=== PATIENT | male | born 1965 | race Caucasian/White ===

== ENCOUNTER 2020-08-18 08:14 | Emergency (ER) | payer OTHER, SELFPAY ==
[~2020-08-18] VITALS: Ht 185.4 cm; Wt 86.2 kg
[2020-08-18 08:26] VITALS: BP 146/84
[2020-08-18] MEDS ORDERED: LORazepam 2 MG/ML VIAL IVP ONE ×3 (08:30→15:30)
[2020-08-18 09:03] LABS: BASOPHILS % (AUTO) 0.3 % (0.0-2.0); EOSINOPHILS # (AUTO) 0.1 K/uL (0-0.4); EOSINOPHILS % (AUTO) 1.2 % (0.0-4.0); HEMATOCRIT 42.1 % (36-52); HEMOGLOBIN 14.1 g/dL (12.0-18.0); LYMPHOCYTES # (AUTO) 1.2 K/uL (2.0-11.5); MEAN CORPUSCULAR HEMOGLOBIN 30 pg (27-31); MEAN CORPUSCULAR HGB CONC 34 g/dL (33-37); MEAN CORPUSCULAR VOLUME 89.3 fL (80-94); MONOCYTES # (AUTO) 0.6 K/uL (0.8-1.0); MONOCYTES % (AUTO) 6.6 % (1.7-9.3); NEUTROPHILS # (AUTO) 7.7 K/uL (1.8-7.7); NEUTROPHILS % (AUTO) 79.9 % (42.2-75.2); PLATELET COUNT (AUTO) 196 K/uL (140-450); RED BLOOD CELL COUNT(AUTO) 4.71 MIL/uL (4.20-6.10); RED CELL DISTRIBUTION WIDTH 13.2 % (11.6-13.7); WHITE BLOOD COUNT (AUTO) 9.7 K/uL (4.8-10.8)
--- NOTE | 2020-08-18 09:12 | NUR ---
PATIENT TAKEN TO BED 4 BY [facility] AT THIS TIME.
[2020-08-18 09:42] LABS: ALBUMIN 4.1 g/dL (3.4-5.0); ANION GAP 13.9 (8-16); ASPARTATE AMINOTRANSFERASE 18 U/L (15-37); CARBON DIOXIDE 28.3 mmol/L (21-32); CHLORIDE 104 mmol/L (98-107); CREATININE 0.9 mg/dL (0.6-1.3); GFR ARICAN-AMERICAN 113 mL/min (>90); GLUCOSE 160 mg/dL (74-106); POTASSIUM 3.2 mmol/L (3.5-5.1); SALICYLATE 2.8 mg/dL (2.8-20.0); SODIUM SERUM 143 mmol/L (136-145); TOTAL BILIRUBIN 0.4 mg/dL (0.0-1.0); UREA NITROGEN, BLOOD 14 mg/dL (7-18)
[2020-08-18 09:46] LABS: ACETAMINOPHEN < 0.5 ug/ml (10-30)
--- NOTE | 2020-08-18 13:17 | NUR ---
Stable but not follow commands yet Lying in bed with blankets over head Sleeping but easily aroused
[2020-08-18] MEDS ORDERED: NACL 0.9% 1,000 ML IV ONE ×2 (13:55→20:55)
--- NOTE | 2020-08-18 14:12 | NUR ---
PT'S SPEAKING WITH DR. BRADEN.
[2020-08-18] MEDS ORDERED: HALOPERIDOL IM 5 MG/ML VIAL IM ONE (14:55)
[2020-08-18] MEDS ORDERED: LORazepam 2 MG/ML VIAL ONE (15:32)
[2020-08-18] MEDS ORDERED: diphenhydrAMINE 50 MG/ML VIAL IVP ONE (16:10)
[2020-08-18 17:01] LABS: BARBITURATE, URINE NEGATIVE ng/ml (NEG <=200); BENZODIAZEPINE, URINE POSITIVE ng/mL (NEG <=200); CANNABINOID, URINE NEGATIVE ng/mL (NEG <=50); COCAINE, URINE NEGATIVE ng/mL (NEG <=300); OPIATE, URINE NEGATIVE ng/mL (NEG <=2000); PHENCYCLIDINE SCREEN,URINE NEGATIVE ng/mL (NEG <=25)
--- NOTE | 2020-08-18 20:00 | NUR ---
RESTING IN BED WITH EYES CLOSED, RESPIRATIONS REGULAR AND UNLABORED
[2020-08-18] MEDS ORDERED: ONDANSETRON 4 MG/2 ML VIAL IM/IVP PRN (20:35)
[2020-08-18] MEDS ORDERED: DEXT 5% /NACL 0.9% 1,000 ML IV SCH (20:35)
[2020-08-18] MEDS ORDERED: POTASSIUM CHLORIDE 10 MEQ TABER PO PRN (20:35)
[2020-08-18] MEDS ORDERED: ZOLPIDEM 5 MG TAB PO PRN (20:35)
[2020-08-18] MEDS ORDERED: HYDROcodone/APAP 7.5/325 MG 1 TAB PO PRN (20:35)
[2020-08-18] MEDS ORDERED: DOCUSATE SODIUM 100 MG GELCAP PO PRN (20:35)
[2020-08-18] MEDS ORDERED: ACETAMINOPHEN 325 MG TAB PO PRN (20:35)
[2020-08-18] MEDS ORDERED: guaiFENesin DM 200/20 MG-10 ML 10 ML UDC PO PRN (20:35)
[2020-08-18] MEDS ORDERED: DEXTROSE 5% 1,000 ML IV ONE (20:55)
[2020-08-18 21:51] LABS: CHOL/HDL RATIO 2.9 (1-4.5); FREE T4 (FREE THYROXINE) 1.24 ng/dL (0.76-1.46); MAGNESIUM 1.8 mg/dL (1.8-2.4); PHOSPHORUS 3.5 mg/dL (2.5-4.9)
[2020-08-18 21:56] LABS: PROTHROMBIN TIME 9.9 secs (10.8-13.4)
[2020-08-18 22:18] LABS: THYROID STIMULATING HORMONE 0.84 uIU/mL (0.34-3.74)
--- NOTE | 2020-08-18 22:55 | NUR ---
RAJNI SWAB OBTAINED
--- NOTE | 2020-08-19 02:00 | NUR ---
HAS BEEN RESTING QUIETLY WITH EYES CLOSED.
--- NOTE | 2020-08-19 07:20 | NUR ---
REPORT RECEIVED FROM DANIELLE POWERS, TRANSFER OF CARE AT THIS TIME
[2020-08-19 08:00] LABS: BASOPHILS % (AUTO) 0.4 % (0.0-2.0); EOSINOPHILS # (AUTO) 0.1 K/uL (0-0.4); EOSINOPHILS % (AUTO) 2.1 % (0.0-4.0); HEMATOCRIT 40.6 % (36-52); HEMOGLOBIN 13.6 g/dL (12.0-18.0); LYMPHOCYTES # (AUTO) 1.5 K/uL (2.0-11.5); MEAN CORPUSCULAR HEMOGLOBIN 30 pg (27-31); MEAN CORPUSCULAR HGB CONC 33 g/dL (33-37); MEAN CORPUSCULAR VOLUME 88.6 fL (80-94); MONOCYTES # (AUTO) 0.6 K/uL (0.8-1.0); MONOCYTES % (AUTO) 9.1 % (1.7-9.3); NEUTROPHILS # (AUTO) 4.1 K/uL (1.8-7.7); NEUTROPHILS % (AUTO) 64.4 % (42.2-75.2); PLATELET COUNT (AUTO) 179 K/uL (140-450); RED BLOOD CELL COUNT(AUTO) 4.58 MIL/uL (4.20-6.10); RED CELL DISTRIBUTION WIDTH 13.1 % (11.6-13.7); WHITE BLOOD COUNT (AUTO) 6.4 K/uL (4.8-10.8)
--- NOTE | 2020-08-19 08:09 | NUR ---
PT STATES THAT HE IS TIRED OF BEING HERE AND WANTS TO LEAVE AMA, DR ROCHA MADE AWARE.
--- NOTE | 2020-08-19 08:25 | NUR ---
PT TO BE PICKED UP BY SON/.
[2020-08-19 08:30] VITALS: BP 132/63
--- NOTE | 2020-08-19 08:30 | NUR ---
PT SIGNED AMA AND LEFT FACILITY AT THIS TIME
[2020-08-19] MEDS ORDERED: PANTOPRAZOLE 40 MG TABEC PO SCH (09:00)
[2020-08-19 09:04] LABS: ANION GAP 13.7 (8-16); CARBON DIOXIDE 25.9 mmol/L (21-32); CREATININE 0.7 mg/dL (0.6-1.3); POTASSIUM 3.6 mmol/L (3.5-5.1)
[2020-08-20 07:12] LABS: T4 (THYROXINE) 9.2 ug/dL (4.5-12.0)
--- NOTE | 2020-08-21 14:21 | NUR ---
LATE ENTRY -- DEXTROSE INFUSIONS ENDED AT 0800 08/19/20
--- NOTE | 2020-08-22 10:18 | NUR ---
LATE ENTRY -- NS INFUSION COMPLETED AT 0800 08/19
== END 2020-08-19 08:30 | disposition left against medical advice (07) ==
LOC: MED 08:14 → UNDOADMIN 20:59 → MTU 20:59 → MED 08-19 08:30 → UNDODISIN 08-19 08:30
DX: E16.2 Hypoglycemia, unspecified (principal); Z20.828 Contact with and (suspected) exposure to other viral communicable diseases; R41.82 Altered mental status, unspecified; F19.90 Other psychoactive substance use, unspecified, uncomplicated
CPT/HCPCS: 36415; 70450; 70496; 70498; 80048; 80053; 80061; 80305; 82140; 82150; 83036; 83690; 83735; 83880; 84100; 84436; 84439; 84443; 84479; 84484; 85025; 85610; 85730; 87426; 96365; 96366; 96372; 96375; 99285; G0480; G0482; J1200; J1630; J2060; Q9967